=== PATIENT | male | born 1990 | race Caucasian/White ===

== ENCOUNTER 2024-02-15 07:16 | Emergency (ER) | payer OTHER, SELFPAY ==
[2024-02-15] VITALS (7 sets, daily range): BP systolic 133–142; BP diastolic 88–95; BMI 42.5
[2024-02-15 07:40] LABS: % Basophils 0.3 % (0-2); % Eosinophils 1.8 % (0-6); % Immature Granulocytes 0.6 % (0-0.5); % Lymphocytes 14.5 % (20.5-51.1); % Monocytes 6.2 % (1.7-9.3); % Neutrophils 76.6 % (42.2-75.2); Absolute Eosinophils 0.2 10^3/uL (0-0.7); Absolute Immature Granulocytes 0.1 10^3/uL (0-0.05); Absolute Lymphocytes 1.7 10^3/uL (1.2-3.4); Absolute Monocytes 0.7 10^3/uL (0.1-0.6); Absolute Neutrophils 9.1 10^3/uL (1.4-6.5); Hematocrit 46.1 % (39.0-52.0); Hemoglobin 16.6 g/dL (13.0-18.0); Mean Corpuscular Hgb 28.7 pg (27.0-31.0); Mean Corpuscular Volume 79.8 fL (80.0-94.0); Mean Platelet Volume 9.1 fL (7.4-10.4); Nucleated Red Blood Cells % 0 % (-); Platelet Count 292 10^3/uL (130-400); Red Blood Cell Count 5.78 10^6/uL (4.70-6.10); Red Cell Dist. Width 13.2 % (11.5-14.5); White Blood Cell Count 11.9 10^3/uL (4.8-10.8)
--- NOTE | 2024-02-15 07:42 | ED.GENMED ---
History of Present Illness
General
Chief Complaint: Abdominal Symptoms
Source: patient and records
Exam Limitations: none
Time Seen by Provider: 02/15/24 07:17
Nursing documentation reviewed up to this point in time: agreed with
Travel History
Have you had any contact with someone who has COVID-19?: No
Do you have any symptoms of coronavirus? Fever > 100 degrees, chills, cough, shortness of breath, sore throat, loss of taste or smell, muscle aches, or headache?: No
History of Present Illness
History of Present Illness:
Patient is a 34-year-old male who presents to the emergency department complaining of nausea, vomiting with diarrhea and orthostatic type symptoms. Patient states that 5 days ago started on Zepbound and then the next day he started having severe
liquidy diarrhea without mucus or blood. Patient was belching and felt nauseous. Patient has been unable to eat because of the lack appetite. This morning the patient started to vomit noticed that he was standing up he felt lightheaded and weak.
Patient became very diaphoretic and near syncopal while in the bathroom today having diarrhea. Patient also noticed cramping in his legs and hands since the diarrhea started. Patient is on the medication for weight loss.
Past History
Past History
ED Past Medical History: HTN
ED Past Surgical History: None
Social History
Tobacco: Smoker
Alcohol: None
Drug: None
Living: with family
Employment: Employed
Review of Systems
Review of Systems
All Other Systems: ROS reviewed and negative except as documented in HPI and ROS
Constitutional: Reports fatigue; Denies fever or chills
EENT: Reports no symptoms
Respiratory: Reports no symptoms
Cardiac: Reports no symptoms
ABD/GI: Reports nausea, vomiting, diarrhea and anorexia; Denies abdominal pain, bloody stools or black stools
: Reports no symptoms
Musculoskeletal: Reports muscle pain
Skin: Reports no symptoms
Neurological: Reports no symptoms
Hematologic/Lymphatic: Reports no symptoms
Psychiatric: Reports no symptoms
Phy Exam
Physical Exam
Physical Exam:
Physical Exam
General: mild to moderate obese, dry mucous membranes distress, alert and appropriate, well nourished, well hydrated
HENT: Normocephalic, supple with no lymphadenopathy, no thyromegaly
Eyes: Clear sclera, conjuctiva without injection
Heart: Regular rhythm and rate. No S3, S4. No murmur.
Lungs: No respiratory distress, no stridor, lung sounds clear and equal bilaterally
Abdomen: Soft, nontender, no organomegaly, no CVA tenderness, BS good
Neuro: Alert and oriented x 3, CN II - XII intact, no motor focality, no cerebellar dysfunction
Skin: no rash
Psychiatric: well kept. interactive and cooperative
Extremities: No edema, cyanosis, tenderness
Course
Orders/Labs/Results
Orders:
Orders
02/15/24 07:22
B-Hydroxybutyrate Urgent
Complete Blood Count/With Diff Urgent
Comprehensive Metabolic Panel Urgent
Creatine Phosphokinase Urgent
Comment: ADD ON
Lipase Urgent
Magnesium Urgent
Comment: ADD ON
02/15/24 07:39
Add On- LAB Urgent
Tests Added?: magnesium
0.9% Sodium Chloride 1000 ml [Nss] 1,000 ml IV BOLUS
Ondansetron Injectable [Zofran] 4 mg IV NOW STA
02/15/24 07:46
Add On- LAB Urgent
Tests Added?: CPK
02/15/24 09:15
KCl 20 Meq/D5.45%Sodchl 1000ML [D5/0.45%NSS with KCL 20 MEQ] 20 meq in 1,000 ml IV 200 mls/hr
02/15/24 09:59
Urinalysis Reflex To Culture Urgent
Date Specimen was Collected: 02/15/24
Time Specimen was Collected: 09:52
02/15/24 12:39
B-Hydroxybutyrate Urgent
Basic Metabolic Panel Urgent
Abnormal Lab Results
02/15/24 02/15/24 02/15/24
07:22 09:59 12:39
WBC 11.9 H 10^3/uL
(4.8-10.8)
MCV 79.8 L fL
(80.0-94.0)
Abs Immat Gran (auto) 0.1 H 10^3/uL
(0-0.05)
Absolute Neuts (auto) 9.1 H 10^3/uL
(1.4-6.5)
Absolute Monos (auto) 0.7 H 10^3/uL
(0.1-0.6)
Immature Gran % 0.6 H %
(0-0.5)
Neutrophils % 76.6 H %
(42.2-75.2)
Lymphocytes % 14.5 L %
(20.5-51.1)
Carbon Dioxide 21 L mmol/L
(22-30)
Glucose 133 H mg/dl 118 H mg/dl
(70-99) (70-99)
Calcium 8.1 L mg/dl
(8.4-10.2)
Urine Ketones 3+ A
(Negative)
B-Hydroxybutyrate 1.89 H mmol/L 0.62 H mmol/L
(0.02-0.27) (0.02-0.27)
02/15/24 07:22
02/15/24 12:39
Vital Signs
Initial and Last Documented VS:
Initial Vital Signs
Temp Pulse Resp BP Pulse Ox
98.7 F 87 18 134/92 100
02/15/24 07:17 02/15/24 07:17 02/15/24 07:17 02/15/24 07:17 02/15/24 07:17
Last Documented Vital Signs
Temp Pulse Resp BP Pulse Ox
98.7 F 88 16 133/93 100
02/15/24 07:17 02/15/24 11:45 02/15/24 11:45 02/15/24 10:00 02/15/24 10:00
*Pulse Oximetry
Patient hypoxic: no
*EKG
Interpreted by ED Provider?: NA
*Chief Deputy Court Clerk Interpretation
Rate: tachycardiac
Interpretation: abnormal
Heart Rate: 120
Rhythm: sinus
*Critical Care Note
Total Time (30-74mins, 75-104mins- exclusive of procedures): Not Applicable
Update Note
Update Note:
It appears the patient has mild DKA that is euglycemic. Will hydrate the patient and recheck for ketones in a couple hours. Hopefully will be able to send the patient home.
Patient's beta hydroxybutyrate has dropped significantly. Patient will be discharged.
ED Attending Note
-
Portions of this chart may have been created with voice recognition software.� Occasional wrong word or��sound alike� substitutions may have occurred due to the inherent limitations of voice recognition software.
Discharge Plan
Departure
Patient Disposition: Home (Routine Discharge)
Date of Disposition: 02/15/24
Time of Disposition: 13:46
Patient with high blood pressure during this ER visit?: Yes
Condition: Fair
Covid-19: Not Applicable
Discharge Problem:
Ketoacidosis
Instructions: Diarrhea in teens and adults, Dehydration, Adult (DC), [place] Diet
Prescriptions:
New
ondansetron 8 mg tablet,disintegrating
8 mg PO TID PRN (Reason: nausea and vomiting) Qty: 20 0RF
Referrals:
Johnnie Grijalva MD [Family Provider] - Follow up in 2-3 days
Activity Restrictions/Additional Instructions:
Make sure to drink plenty of fluids. Continue present medications and therapy. Check with your physician before your next dose of weight loss drug.
Interventions
Interventions:
*Risk Screen - Suicide Last Done: 02/15/24 07:17
*General Assessment Last Done: 02/15/24 07:17
*Neglect/Abuse Screening Last Done: 02/15/24 07:17
*ED COVID-19 Vaccine History Last Done: 02/15/24 07:17
VF-Uuuqzh-Urbdziheef Assessment Last Done: 02/15/24 07:17
Discharge Date and Time
Print Language: SERBIAN
[2024-02-15] MEDS: ZOFRAN 4 MG IV (07:54)
[2024-02-15] MEDS: NSS 1000 IV (07:56)
[2024-02-15 08:21] LABS: ALT (SGPT) 24 U/L (0-50); AST (SGOT) 23 U/L (17-59); Albumin 4.2 g/dl (3.5-5.0); Alkaline Phosphatase 83 U/L (38-126); Blood Urea Nitrogen 14 mg/dl (9-20); Calcium 8.9 mg/dl (8.4-10.2); Carbon Dioxide 21 mmol/L (22-30); Chloride 104 mmol/L (98-107); Creatine Phosphokinase 105 U/L (55-170); Estimated Creatinine Clearance > 125 ml/min; Glucose 133 mg/dl (70-99); Lipase 64 U/L (23-300); Magnesium 1.9 mg/dl (1.6-2.3); Sodium 138 mmol/L (135-145); Total Protein 6.8 g/dl (6.3-8.2); eGFR > 60.00
[2024-02-15 08:28] LABS: B-Hydroxybutyrate 1.89 mmol/L (0.02-0.27)
[2024-02-15] MEDS: D5/0.45%NSS with KCL 20 MEQ 1000 IV (09:53)
[2024-02-15 10:43] LABS: Urine Albumin Negative (Neg - Trace); Urine Bilirubin Negative (Negative); Urine Character Clear (Clear); Urine Color Yellow; Urine Glucose Negative (Negative); Urine Ketone 3+ (Negative); Urine Leukocyte Negative (Negative); Urine Nitrite Negative (Negative); Urine Occult Blood Negative (Negative); Urine Specific Gravity 1.015 (<1.030); Urine Urobilinogen Negative (Neg - 1+)
[2024-02-15 13:08] LABS: Blood Urea Nitrogen 10 mg/dl (9-20); Calcium 8.1 mg/dl (8.4-10.2); Carbon Dioxide 25 mmol/L (22-30); Chloride 106 mmol/L (98-107); Estimated Creatinine Clearance > 125 ml/min; Glucose 118 mg/dl (70-99); Potassium 4.3 mmol/L (3.5-5.1); Sodium 139 mmol/L (135-145); eGFR > 60.00
[2024-02-15 13:15] LABS: B-Hydroxybutyrate 0.62 mmol/L (0.02-0.27)
== END 2024-02-15 15:07 | disposition home or self-care (01) ==
LOC: EMR 07:16
PROVIDERS: EMERGENCY PHYSICIAN Emergency Medicine; FAMILY PHYSICIAN Internal Medicine
DX: E87.29 Other acidosis (principal); I10 Essential (primary) hypertension; F17.200 Nicotine dependence, unspecified, uncomplicated
CPT/HCPCS: 99284; 96374; 96375; 96361; 80048; 80053; 81003; 82010; 82550; 83690; 83735; 85025